=== PATIENT | female | born 1985 | race Caucasian/White ===

== ENCOUNTER 2016-07-01 08:30 | Emergency (ER) | payer OTHER ==
[2016-07-01 08:48] VITALS: BP 108/69; PULSE 108; RESP 24; O2SAT 96
[2016-07-01] MEDS ORDERED: ACETAMINOPHEN 325 MG TAB PO ONE (08:48)
[2016-07-01] MEDS ORDERED: IBUPROFEN 600 MG TAB PO ONE (08:48)
--- NOTE | 2016-07-01 09:14 | UCPHY ---
H & P Time Seen by Provider: 07/01/16 08:59 Patient Type: New HPI/ROS: CHIEF COMPLAINT: flu-like symptoms HISTORY OF PRESENT ILLNESS: Patient is a 30-year-old female who presents to the emergency department with flu-like symptoms. She states her symptoms started 2 days ago. She developed a cough that is productive of yellow sputum. Cough has been worsening. She has body aches in feels fatigued. She describes a mild headache. She has a had a persistent fever that won't break. She denies any rash. No recent travel. No nausea or vomiting. No diarrhea. REVIEW OF SYSTEMS: My complete review of systems is negative except as mentioned in the HPI. Past Medical/Surgical History: Negative Past surgical history: Negative Social history: The patient does not smoke Smoking Status: Former smoker Physical Exam: Vitals noted. 30.7, 108/69, 1 awake, 24, 96 GENERAL: no acute distress, alert. HEENT: Eyes normal to inspection, normal pharynx, no signs of dehydration. NECK: No thyromegaly, no lymphadenopathy, supple. No meningismus RESPIRATORY: Clear to auscultation bilaterally, no rales, rhonchi or wheezing. Normal CVS: Regular rate and rhythm, no rubs, murmurs, or gallops. ABDOMEN: Soft, nontender, nondistended, no organomegaly. BACK: Normal to inspection, no CVA tenderness. SKIN: Normal color, no rash, warm, dry. No pallor. EXTREMITIES: No pedal edema, no calf tenderness, no Homans sign or cords, no joint swelling. NEURO/PSYCH: Alert and oriented, normal mood and affect, normal motor sensory exam. Constitutional: Initial Vital Signs Temperature (C) 38.7 C H 07/01/16 08:46 Heart Rate 108 H 07/01/16 08:46 Respiratory Rate 24 H 07/01/16 08:46 Blood Pressure 108/69 07/01/16 08:46 O2 Sat (%) 96 07/01/16 08:46 O2 Delivery Mode Room Air Allergies/Adverse Reactions: morphine Allergy (Verified 07/01/16 08:46) Home Medications: Medication Instructions Recorded Oseltamivir Phosphate [Tamiflu 75 75 mg PO BID 2 Days 07/01/16 mg (*)] Medical Decision Making ED Course/Re-evaluation: In the urgent care I discussed possible etiologies with the patient. I answered all her questions. A flu swab and chest x-ray were performed. Patient's flu swab was positive for influenza A Chest x-ray: I reviewed the images with Dr. Ricky Beltran. I personally reviewed the images. No focal infiltrate. I discussed the result with the patient. I explained the diagnosis. The patient was given Tamiflu. I gave the patient warnings prior to leaving. She will return with worsening symptoms. Differential Diagnosis: My differential includes but is not limited to influenza, viral illness, bronchitis, pneumonia, empyema, bacteremia, sepsis, dehydration - Data Points Laboratory Results: 07/01/16 08:50 Influenza Typ A,B (DFA) POSITIVE FOR FLU A H (NEGATIVE) Medications Given: Discontinued Medications Acetaminophen (Tylenol) 975 mg PO EDNOW ONE Stop: 07/01/16 08:49 Last Admin: 07/01/16 08:50 Dose: 975 mg Ibuprofen (Motrin) 600 mg PO EDNOW ONE Stop: 07/01/16 08:49 Last Admin: 07/01/16 08:50 Dose: 600 mg Departure - Departure Disposition: Home, Routine, Self-Care Clinical Impression: Influenza A Condition: Good Instructions: Influenza (ED) Referrals: Chiquita oDran MD [Medical Doctor] - 3-4 days, if not improved Prescriptions: Oseltamivir Phosphate [Tamiflu 75 mg (*)] 75 mg PO BID 2 Days - PQRS PQRS Measurement: My PQRS negative my PQRS negative my PQRS negative my PQRS negative 134: Depression screening and followup, PRIME [facility]ORES-PHQ2 (12 years and older) Over the last 2 weeks, how often have you been bothered by any of the following problems? 1. Feeling down, depressed, or hopeless? 2. Little interest or pleasure in doing things? Patient answered no to both 1 and 2 130: Documentation of medications. Reviewed all patient medications, doses, route and frequency. 226: Do you smoke? No.
[2016-07-01 09:57] VITALS: TEMP 100.4
== END 2016-07-01 10:21 | disposition home or self-care (01) ==
LOC: CED 08:30
DX: J10.1 Influenza due to other identified influenza virus with other respiratory manifestations (principal); Z87.891 Personal history of nicotine dependence
CPT/HCPCS: 71020-PO; 87400-PO; 99203-PO; G0463-PO